=== PATIENT | male | born 1935 | race Caucasian/White ===

== ENCOUNTER → 2016-05-03 | Outpatient (CLI) | payer OTHER ==
[~2016-05-03] MED LIST: ALB5IS NEB; ALBUPOW25 INH; ASPI81CH49 PO; CLON0.5T3 PO; CYAN25005 PO; DULO30CA2 PO; GABA-494 PO; IPRASOL39 NEB; LISI10TA6 PO; MOME220A IN; MULTTAB99 PO; OMEG500C5 PO; OMEP20CA5 PO; ROPI0.252 PO
[2016-05-03 11:13] LABS: Basophils # (auto) 0 uL; Basophils % (auto) 0.5 % (0.0-2.0); Eosinophils # (auto) 0.2 uL; Eosinophils % (auto) 2.5 % (0.0-7.0); Hematocrit 45.6 % (41.0-53.0); Hemoglobin 15.1 g/dL (13.5-17.5); Lymphocytes # (auto) 2.2 uL; Lymphocytes % (auto) 31.2 % (10.0-50.0); Mean Corpuscular Hemoglobin 31.5 pg (28.0-32.0); Mean Corpuscular Hgb Conc. 33.1 g/dL (32.0-36.0); Mean Platelet Volume 9.3 fL (7.4-10.4); Monocytes # (auto) 0.6 uL; Monocytes % (auto) 8.2 % (0.0-12.0); Neutrophils # (auto) 4.1 uL; Neutrophils % (auto) 57.6 % (37.0-80.0); Platelet Count (auto) 204 10^3/uL (140-450); Red Cell Distribution Width 12.5 % (11.6-16.0); White Blood Cell 7.2 10^3/uL (4.4-10.8)
[2016-05-03 11:16] LABS: Urine Bilirubin Negative (Negative); Urine Blood Negative /uL (Negative); Urine Color Yellow (Yellow); Urine Glucose Normal (Normal); Urine Ketone Negative (Negative); Urine Nitrite Negative (Negative); Urine RBC <1 /hpf (0 - 3); Urine Squamous Epithelial Cell FEW /hpf (<5); Urine Urobilinogen Normal (Negative)
[2016-05-03 11:23] LABS: INR 1.07 (0.9-1.15); Partial Thromboplastin Time 28.6 sec (22.64-33.71)
[2016-05-03 11:38] LABS: Albumin 3.6 g/dL (3.4-5.0); BUN/Creatinine Ratio 21.8; Bilirubin, Total 0.4 mg/dL (0.2-1.0); Potassium 4.1 mmol/L (3.5-5.1)
== END | disposition home or self-care (01) ==
LOC: LAB 09:51
PROVIDERS: ATTEND Internal Medicine
DX: N18.2 Chronic kidney disease, stage 2 (mild) (principal); I10 Essential (primary) hypertension; Z00.00 Encounter for general adult medical examination without abnormal findings; I67.1 Cerebral aneurysm, nonruptured
CPT/HCPCS: 36415; 80053; 80061; 81001; 83615; 84153; 84443; 85025; 85610; 85730

== ENCOUNTER → 2016-05-27 | Outpatient (CLI) | payer OTHER | END | disposition home or self-care (01) | LOC: XYW 08:44 | PROVIDERS: ATTEND Internal Medicine | DX: I34.2 Nonrheumatic mitral (valve) stenosis (principal); I35.0 Nonrheumatic aortic (valve) stenosis | CPT/HCPCS: 93306 ==

== ENCOUNTER 2016-07-22 12:15 | Emergency (ER) | payer OTHER ==
[~2016-07-22] VITALS: Ht 170.2 cm; Wt 83.9 kg
[~2016-07-22 12:15] MED LIST changes: -ADENOSINE 69 MG in GIVE UN-DILUTED 0 ML IV STA; -ALBUTEROL SULF 2.5 MG/0.5ML(0.5%) NEB SOLN NEB ONE; -AMINOPHYLLINE IV ONE; -D5W 5% IV ONE; -IPRATROPIUM BROM 0.5 MG/2.5ML INH SOL NEB ONE; -methylPREDNISolone SOD SUCC 125 MG/2 ML VL IV ONE
[2016-07-22 13:26] VITALS: BP 112/60
== END 2016-07-22 14:35 | disposition home or self-care (01) ==
LOC: ER 12:17
DX: T78.40XA Allergy, unspecified, initial encounter (principal); I13.0 Hypertensive heart and chronic kidney disease with heart failure and stage 1 through stage 4 chronic kidney disease, or unspecified chronic kidney disease; N18.9 Chronic kidney disease, unspecified; I50.9 Heart failure, unspecified; J44.9 Chronic obstructive pulmonary disease, unspecified; Z86.73 Personal history of transient ischemic attack (TIA), and cerebral infarction without residual deficits; K21.9 Gastro-esophageal reflux disease without esophagitis; Z90.89 Acquired absence of other organs; Z88.8 Allergy status to other drugs, medicaments and biological substances

== ENCOUNTER → 2016-07-22 | Outpatient (CLI) | payer OTHER ==
[~2016-07-22] VITALS: Ht 170.2 cm; Wt 81.6 kg
[~2016-07-22] MED LIST changes: +ADENOSINE 69 MG in GIVE UN-DILUTED 0 ML IV STA; +ALBUTEROL SULF 2.5 MG/0.5ML(0.5%) NEB SOLN NEB ONE; +AMINOPHYLLINE IV ONE; +D5W 5% IV ONE; +IPRATROPIUM BROM 0.5 MG/2.5ML INH SOL NEB ONE; +methylPREDNISolone SOD SUCC 125 MG/2 ML VL IV ONE
== END | disposition home or self-care (01) ==
LOC: XY 09:08
PROVIDERS: ATTEND Internal Medicine Cardiovascular Disease
DX: R06.00 Dyspnea, unspecified (principal)
CPT/HCPCS: 78452; 93017; 96374; A9500; J0153; J0280; J2930; J7060

== ENCOUNTER → 2016-10-07 | Outpatient (CLI) | payer OTHER ==
[~2016-10-07] MED LIST changes: -OMEP20CA5 PO; +OMEP20CA74 PO
== END | disposition home or self-care (01) ==
LOC: RT 08:47
PROVIDERS: ATTEND Internal Medicine Pulmonary Disease
DX: J44.9 Chronic obstructive pulmonary disease, unspecified (principal)
CPT/HCPCS: 94620